=== PATIENT | male | born 1945 | race African-American/Black ===

== ENCOUNTER 2017-09-11 09:43 | Outpatient (CLI) | payer MEDICARE, BC ==
[~2017-09-11 09:43] MED LIST: Iopamidol 370 76% 100 ML VIAL ONE
[2017-09-11 10:17] LABS: Estimated GFR-MDRD - POC Greater than 90
--- NOTE | 2017-09-11 12:52 | CT ---
CT ABDOMEN AND PELVIS WITH AND WITHOUT IV CONTRAST: History: Hematuria. FINDINGS: No comparison. Each renal collecting system, ureter, and urinary bladder are decompressed without stone apparent. Mi ld atelectasis is present at each lung base. Calcified granulomata within the solid organs are consis tent with healed granulomatous disease. No filling defects are apparent within the urinary system on the delayed images. Post-operative rashid es of the GE junction are evident. There is calcification throughout the arterial structures. Degener ative changes lumbar spine. Cysts arise from the cortex of the kidneys, measuring up to 3.2 cm at the superior pole left kidney. Lack of oral contrast limits evaluation of the bowel. No evidence of obstruction. IMPRESSION: 1. Renal cysts. 2. No acute urinary tract abnormalities are demonstrated to explain hematuria. POS: BESSY
== END 2017-09-11 09:44 | disposition home or self-care (01) ==
LOC: SCSCT 09:43
PROVIDERS: ATTEND Urology
DX: R31.0 Gross hematuria (principal); N28.1 Cyst of kidney, acquired
CPT/HCPCS: 74178; 82565

== ENCOUNTER 2020-10-17 10:12 | Outpatient (CLI) | payer MEDICARE | END 2020-10-17 10:13 | disposition home or self-care (01) | LOC: ULT 10:12 | PROVIDERS: ATTEND Internal Medicine | DX: I69.354 Hemiplegia and hemiparesis following cerebral infarction affecting left non-dominant side (principal); I63.9 Cerebral infarction, unspecified; R29.898 Other symptoms and signs involving the musculoskeletal system; I08.1 Rheumatic disorders of both mitral and tricuspid valves | CPT/HCPCS: 70450; 93306; 93880 ==

== ENCOUNTER 2022-01-18 15:36 | Inpatient (IN) | payer MEDICARE ==
[2022-01-18] MEDS ORDERED: Lactated Ringer's 500 ML IV SCH (22:00)
[2022-01-19 03:50] LABS: #Lymphocytes 1.2 thou/uL (1.20-3.40); #Monocytes 0.6 thou/uL (0.11-0.59); #Neutrophils 9.9 thou/uL (1.40-6.50); %Basophils 0.1 % (0.0-1.0); %Lymphocytes 10.1 % (21.0-51.0); %Monocytes 5.1 % (0.0-10.0); %Neutrophils 84.7 % (42.0-75.0); Hemoglobin 10.1 g/dL (14.0-18.0); Mean Corpuscular HGB CONC 33.1 g/dL (32.0-36.0); Mean Corpuscular Hemoglobin 26.5 pg (27.0-31.0); Mean Corpuscular Volume 80.1 fL (78.0-98.0); Platelet Count 261 thou/uL (130-400); RBC Distribution Width 14.6 % (11.5-14.5); White Blood Cell (WBC) Count 11.7 thou/uL (4.8-10.8)
[2022-01-19 04:09] LABS: Lactic Acid 1.2 mmol/L (0.5-2.2)
[2022-01-19 04:11] LABS: ALT (SGPT) 17 U/L (8-55); AST (SGOT) 22 U/L (5-34); Albumin 2.8 g/dL (3.4-4.8); Alkaline Phosphatase 47 U/L (40-110); Anion Gap 11 mmol/L (10-20); BUN (Urea Nitrogen) 22 mg/dL (8.4-25.7); Bilirubin, Total 0.7 mg/dL (0.2-1.2); Calc. Creatinine Clearance 69 mL/min (70-130); Calcium 8.6 mg/dL (7.8-10.44); Carbon Dioxide 22 mmol/L (23-31); Chloride 105 mmol/L (98-107); Estimated GFR 100; Globulin 2.7 g/dL (2.4-3.5); Glucose 104 mg/dL (83-110); Potassium 3.9 mmol/L (3.5-5.1); Protein, Total 5.5 g/dL (5.8-8.1); Sodium 134 mmol/L (136-145)
[2022-01-19] MEDS: Lactated Ringer's 1,000 ML IV SCH ×4 (05:14→20:13)
[2022-01-19] MEDS ORDERED: Ferrous Sulfate 325 MG TAB PO SCH (09:00)
[2022-01-19] MEDS ORDERED: Enoxaparin Sodium 30 MG/0.3 ML SYRINGE SC SCH (09:00)
[2022-01-19] MEDS ORDERED: Oxybutynin 5 MG TAB PO SCH (09:00)
[2022-01-19] MEDS: metroNIDAZOLE 500 MG in Premix Bag 1 BAG IVPB SCH ×2 (09:26→17:01)
[2022-01-19] MEDS: Aspirin 81 mg Enteric Coated Tablet PO SCH (09:27)
[2022-01-19] MEDS: Enoxaparin Sodium 40 MG/0.4 ML SYRINGE SC SCH (09:27)
[2022-01-19] MEDS: Loratadine 10 MG TAB PO SCH (09:28)
[2022-01-19] MEDS: Clopidogrel Bisulfate 75 MG TAB PO SCH (09:28)
[2022-01-19] MEDS: Finasteride 5 MG TAB PO SCH (09:28)
[2022-01-19] MEDS: cefTRIAXone\\ROCEPHIN 1 GM in Sodium Chloride 0.9% 100 ML IVPB SCH (14:53)
[2022-01-19] MEDS: Azithromycin 500 MG in Sodium Chloride 0.9% 250 ML 250 ML IVPB SCH (14:53)
[2022-01-19] MEDS ORDERED: Acetaminophen 650 MG Suppository PR PRN (19:52)
[2022-01-19] MEDS ORDERED: Acetaminophen 650 MG Suppository PR SCH (20:00)
[2022-01-19] MEDS: Acetaminophen 650 MG Suppository PR PRN (20:07)
[2022-01-19] MEDS: Atorvastatin Calcium 20 MG TAB PO SCH (20:12)
[2022-01-19] MEDS: Tamsulosin HCl 0.4 MG CAP PO SCH (20:12)
[2022-01-20] MEDS: metroNIDAZOLE 500 MG in Premix Bag 1 BAG IVPB SCH ×3 (00:26→17:44)
[2022-01-20] MEDS: Acetaminophen 650 MG Suppository PR PRN ×2 (00:26→03:55)
[2022-01-20] MEDS: Lactated Ringer's 1,000 ML IV SCH (03:50)
[2022-01-20 04:37] LABS: #Lymphocytes 0.7 thou/uL (1.20-3.40); #Monocytes 0.4 thou/uL (0.11-0.59); #Neutrophils 7.2 thou/uL (1.40-6.50); %Basophils 0.4 % (0.0-1.0); %Lymphocytes 8.1 % (21.0-51.0); %Monocytes 4.3 % (0.0-10.0); %Neutrophils 87.1 % (42.0-75.0); Hemoglobin 9.1 g/dL (14.0-18.0); Mean Corpuscular HGB CONC 33.1 g/dL (32.0-36.0); Mean Corpuscular Hemoglobin 26.3 pg (27.0-31.0); Mean Corpuscular Volume 79.4 fL (78.0-98.0); Mean Platelet Volume 8.6 fL (7.4-10.4); Platelet Count 228 thou/uL (130-400); RBC Distribution Width 14.5 % (11.5-14.5); Red Blood Cell (RBC) Count 3.47 mill/uL (4.70-6.10); White Blood Cell (WBC) Count 8.3 thou/uL (4.8-10.8)
[2022-01-20 05:04] LABS: ALT (SGPT) 15 U/L (8-55); AST (SGOT) 23 U/L (5-34); Albumin 2.4 g/dL (3.4-4.8); Alkaline Phosphatase 41 U/L (40-110); Anion Gap 10 mmol/L (10-20); BUN (Urea Nitrogen) 15 mg/dL (8.4-25.7); Bilirubin, Total 0.8 mg/dL (0.2-1.2); Calc. Creatinine Clearance 79 mL/min (70-130); Calcium 8.6 mg/dL (7.8-10.44); Carbon Dioxide 22 mmol/L (23-31); Chloride 103 mmol/L (98-107); Estimated GFR 104; Glucose 81 mg/dL (83-110); Potassium 3.3 mmol/L (3.5-5.1); Protein, Total 5.4 g/dL (5.8-8.1); Sodium 132 mmol/L (136-145)
[2022-01-20] MEDS ORDERED: Potassium Chloride 40 MEQ in Premix Bag 1 BAG IVPB SCH (08:00)
[2022-01-20] MEDS: Aspirin 81 mg Enteric Coated Tablet PO SCH (08:34)
[2022-01-20] MEDS: Enoxaparin Sodium 40 MG/0.4 ML SYRINGE SC SCH (08:35)
[2022-01-20] MEDS: Loratadine 10 MG TAB PO SCH (08:35)
[2022-01-20] MEDS: Finasteride 5 MG TAB PO SCH (08:35)
[2022-01-20] MEDS: Clopidogrel Bisulfate 75 MG TAB PO SCH (08:35)
[2022-01-20] MEDS: Dextrose 5 %-0.45 % NaCl 1,000 ML IV SCH ×2 (11:20→19:24)
[2022-01-20] MEDS: Azithromycin 500 MG in Sodium Chloride 0.9% 250 ML 250 ML IVPB SCH ×2 (17:44→18:39)
[2022-01-20] MEDS: cefTRIAXone\\ROCEPHIN 1 GM in Sodium Chloride 0.9% 100 ML IVPB SCH (17:44)
[2022-01-20] MEDS: Atorvastatin Calcium 20 MG TAB PO SCH (19:24)
[2022-01-20] MEDS: Tamsulosin HCl 0.4 MG CAP PO SCH (19:24)
[2022-01-21] MEDS: metroNIDAZOLE 500 MG in Premix Bag 1 BAG IVPB SCH ×3 (01:22→17:49)
[2022-01-21 04:58] LABS: #Lymphocytes 0.6 thou/uL (1.20-3.40); #Monocytes 0.3 thou/uL (0.11-0.59); #Neutrophils 6.1 thou/uL (1.40-6.50); %Basophils 0.1 % (0.0-1.0); %Eosinophils 0.1 % (0.0-10.0); %Lymphocytes 9.1 % (21.0-51.0); %Monocytes 4.8 % (0.0-10.0); %Neutrophils 85.9 % (42.0-75.0); Hemoglobin 10.2 g/dL (14.0-18.0); Mean Corpuscular HGB CONC 32.4 g/dL (32.0-36.0); Mean Corpuscular Hemoglobin 26.1 pg (27.0-31.0); Mean Corpuscular Volume 80.7 fL (78.0-98.0); Mean Platelet Volume 8.5 fL (7.4-10.4); Platelet Count 250 thou/uL (130-400); White Blood Cell (WBC) Count 7.1 thou/uL (4.8-10.8)
[2022-01-21 05:17] LABS: ALT (SGPT) 16 U/L (8-55); AST (SGOT) 22 U/L (5-34); Albumin 2.4 g/dL (3.4-4.8); Alkaline Phosphatase 46 U/L (40-110); Anion Gap 12 mmol/L (10-20); BUN (Urea Nitrogen) 8 mg/dL (8.4-25.7); Bilirubin, Total 0.6 mg/dL (0.2-1.2); Calc. Creatinine Clearance 76 mL/min (70-130); Calcium 8.5 mg/dL (7.8-10.44); Carbon Dioxide 21 mmol/L (23-31); Chloride 100 mmol/L (98-107); Estimated GFR 103; Globulin 3.2 g/dL (2.4-3.5); Glucose 111 mg/dL (83-110); Potassium 3.5 mmol/L (3.5-5.1); Protein, Total 5.6 g/dL (5.8-8.1); Sodium 129 mmol/L (136-145)
[2022-01-21] MEDS: Dextrose 5 %-0.45 % NaCl 1,000 ML IV SCH (05:46)
[2022-01-21] MEDS: Clopidogrel Bisulfate 75 MG TAB PO SCH (07:31)
[2022-01-21] MEDS: Aspirin 81 mg Enteric Coated Tablet PO SCH (07:31)
[2022-01-21] MEDS: Finasteride 5 MG TAB PO SCH (07:31)
[2022-01-21] MEDS: Loratadine 10 MG TAB PO SCH (07:31)
[2022-01-21] MEDS: Enoxaparin Sodium 40 MG/0.4 ML SYRINGE SC SCH (10:06)
[2022-01-21] MEDS: Lactated Ringer's 1,000 ML IV SCH ×2 (11:28→20:37)
[2022-01-21] MEDS: cefTRIAXone\\ROCEPHIN 1 GM in Sodium Chloride 0.9% 100 ML IVPB SCH (17:49)
[2022-01-21] MEDS: Azithromycin 500 MG in Sodium Chloride 0.9% 250 ML 250 ML IVPB SCH (17:49)
[2022-01-21] MEDS: Acetaminophen 650 MG Suppository PR PRN (17:50)
[2022-01-21] MEDS: Atorvastatin Calcium 20 MG TAB PO SCH (20:13)
[2022-01-21] MEDS: Tamsulosin HCl 0.4 MG CAP PO SCH (20:14)
[2022-01-22] MEDS: metroNIDAZOLE 500 MG in Premix Bag 1 BAG IVPB SCH ×3 (02:04→16:15)
[2022-01-22] MEDS: Lactated Ringer's 1,000 ML IV SCH ×2 (04:17→09:23)
[2022-01-22 05:58] LABS: #Lymphocytes 0.4 thou/uL (1.20-3.40); #Monocytes 0.4 thou/uL (0.11-0.59); #Neutrophils 4.8 thou/uL (1.40-6.50); %Eosinophils 0.1 % (0.0-10.0); %Lymphocytes 7.8 % (21.0-51.0); %Monocytes 6.8 % (0.0-10.0); %Neutrophils 85.2 % (42.0-75.0); Hemoglobin 10.2 g/dL (14.0-18.0); Mean Corpuscular HGB CONC 31.8 g/dL (32.0-36.0); Mean Corpuscular Hemoglobin 25.1 pg (27.0-31.0); Mean Platelet Volume 8.4 fL (7.4-10.4); Platelet Count 245 thou/uL (130-400); RBC Distribution Width 14.7 % (11.5-14.5); Red Blood Cell (RBC) Count 4.08 mill/uL (4.70-6.10); White Blood Cell (WBC) Count 5.6 thou/uL (4.8-10.8)
[2022-01-22 06:19] LABS: ALT (SGPT) 17 U/L (8-55); AST (SGOT) 26 U/L (5-34); Albumin 2.3 g/dL (3.4-4.8); Alkaline Phosphatase 39 U/L (40-110); Anion Gap 11 mmol/L (10-20); BUN (Urea Nitrogen) 8 mg/dL (8.4-25.7); Bilirubin, Total 0.5 mg/dL (0.2-1.2); Calc. Creatinine Clearance 82 mL/min (70-130); Calcium 8.5 mg/dL (7.8-10.44); Carbon Dioxide 22 mmol/L (23-31); Chloride 100 mmol/L (98-107); Estimated GFR 105; Globulin 3.1 g/dL (2.4-3.5); Glucose 79 mg/dL (83-110); Potassium 3.1 mmol/L (3.5-5.1); Protein, Total 5.4 g/dL (5.8-8.1); Sodium 130 mmol/L (136-145)
[2022-01-22] MEDS ORDERED: Potassium Chloride 40 MEQ in Premix Bag 1 BAG IVPB SCH (09:00)
[2022-01-22] MEDS: Aspirin 81 mg Enteric Coated Tablet PO SCH (09:23)
[2022-01-22] MEDS: Clopidogrel Bisulfate 75 MG TAB PO SCH (09:23)
[2022-01-22] MEDS: Finasteride 5 MG TAB PO SCH (09:23)
[2022-01-22] MEDS: Enoxaparin Sodium 30 MG/0.3 ML SYRINGE SC SCH (09:23)
[2022-01-22] MEDS: Loratadine 10 MG TAB PO SCH (09:24)
[2022-01-22] MEDS: Potassium Chloride 20 MEQ in Premix Bag 1 BAG IVPB SCH ×2 (11:19→16:14)
[2022-01-22] MEDS: cefTRIAXone\\ROCEPHIN 1 GM in Sodium Chloride 0.9% 100 ML IVPB SCH (15:09)
[2022-01-22 15:54] VITALS: BMI 15.2
[2022-01-22] MEDS ORDERED: Potassium Chloride 20 MEQ in Premix Bag 1 BAG IVPB SCH (16:15)
[2022-01-22] MEDS: Tamsulosin HCl 0.4 MG CAP PO SCH (21:19)
[2022-01-22] MEDS: Atorvastatin Calcium 20 MG TAB PO SCH (21:19)
[2022-01-23] MEDS: Lactated Ringer's 1,000 ML IV SCH ×3 (01:38→21:21)
[2022-01-23] MEDS: metroNIDAZOLE 500 MG in Premix Bag 1 BAG IVPB SCH ×2 (01:39→08:53)
[2022-01-23 04:55] LABS: #Basophils 0.1 thou/uL (0.0-0.2); #Lymphocytes 1.1 thou/uL (1.20-3.40); #Monocytes 0.7 thou/uL (0.11-0.59); #Neutrophils 3.1 thou/uL (1.40-6.50); %Basophils 1.2 % (0.0-1.0); %Eosinophils 0.7 % (0.0-10.0); %Lymphocytes 21.8 % (21.0-51.0); %Monocytes 13.6 % (0.0-10.0); %Neutrophils 62.8 % (42.0-75.0); Hemoglobin 10.2 g/dL (14.0-18.0); Mean Corpuscular HGB CONC 32.7 g/dL (32.0-36.0); Mean Corpuscular Volume 79.7 fL (78.0-98.0); Mean Platelet Volume 8.7 fL (7.4-10.4); Platelet Count 229 thou/uL (130-400); RBC Distribution Width 14.6 % (11.5-14.5); Red Blood Cell (RBC) Count 3.93 mill/uL (4.70-6.10)
[2022-01-23 05:21] LABS: ALT (SGPT) 14 U/L (8-55); AST (SGOT) 23 U/L (5-34); Albumin 2.1 g/dL (3.4-4.8); Alkaline Phosphatase 42 U/L (40-110); Anion Gap 9 mmol/L (10-20); BUN (Urea Nitrogen) 8 mg/dL (8.4-25.7); Bilirubin, Total 0.3 mg/dL (0.2-1.2); Calc. Creatinine Clearance 77 mL/min (70-130); Calcium 8.3 mg/dL (7.8-10.44); Carbon Dioxide 23 mmol/L (23-31); Chloride 102 mmol/L (98-107); Estimated GFR 103; Globulin 2.9 g/dL (2.4-3.5); Glucose 93 mg/dL (83-110); Potassium 3.4 mmol/L (3.5-5.1); Sodium 131 mmol/L (136-145)
[2022-01-23] MEDS: Clopidogrel Bisulfate 75 MG TAB PO SCH (08:53)
[2022-01-23] MEDS: Loratadine 10 MG TAB PO SCH (08:53)
[2022-01-23] MEDS: Finasteride 5 MG TAB PO SCH (08:53)
[2022-01-23] MEDS: Enoxaparin Sodium 30 MG/0.3 ML SYRINGE SC SCH (08:53)
[2022-01-23] MEDS: Aspirin 81 mg Enteric Coated Tablet PO SCH (08:53)
[2022-01-23] MEDS: metroNIDAZOLE 500 MG TAB PO SCH ×2 (14:13→21:21)
[2022-01-23] MEDS: cefTRIAXone\\ROCEPHIN 1 GM in Sodium Chloride 0.9% 100 ML IVPB SCH (14:13)
[2022-01-23] MEDS: Atorvastatin Calcium 20 MG TAB PO SCH (21:21)
[2022-01-23] MEDS: Tamsulosin HCl 0.4 MG CAP PO SCH (21:21)
[2022-01-24 05:06] LABS: ALT (SGPT) 13 U/L (8-55); AST (SGOT) 17 U/L (5-34); Albumin 2.1 g/dL (3.4-4.8); Alkaline Phosphatase 37 U/L (40-110); Anion Gap 10 mmol/L (10-20); BUN (Urea Nitrogen) 6 mg/dL (8.4-25.7); Bilirubin, Total 0.3 mg/dL (0.2-1.2); Calc. Creatinine Clearance 78 mL/min (70-130); Calcium 8.2 mg/dL (7.8-10.44); Carbon Dioxide 23 mmol/L (23-31); Chloride 104 mmol/L (98-107); Estimated GFR 104; Glucose 96 mg/dL (83-110); Potassium 3.2 mmol/L (3.5-5.1); Protein, Total 5.1 g/dL (5.8-8.1); Sodium 134 mmol/L (136-145)
[2022-01-24 05:24] LABS: Band 6 % (5-11); Eosinophils 1 % (0-10); Hemoglobin 10.1 g/dL (14.0-18.0); Lymphocytes 22 % (21-51); MDiff Complete? YES; Mean Corpuscular HGB CONC 33.2 g/dL (32.0-36.0); Mean Corpuscular Hemoglobin 26.4 pg (27.0-31.0); Mean Corpuscular Volume 79.7 fL (78.0-98.0); Mean Platelet Volume 8.6 fL (7.4-10.4); Monocytes 12 % (0-10); Neutrophil 58 % (42-75); Platelet Count 235 thou/uL (130-400); RBC Distribution Width 14.8 % (11.5-14.5); Reactive Lymphocytes 1 % (0-10); Red Blood Cell (RBC) Count 3.81 mill/uL (4.70-6.10); White Blood Cell (WBC) Count 5.1 thou/uL (4.8-10.8)
[2022-01-24] MEDS: Aspirin 81 mg Enteric Coated Tablet PO SCH (09:25)
[2022-01-24] MEDS: Finasteride 5 MG TAB PO SCH (09:37)
[2022-01-24] MEDS: metroNIDAZOLE 500 MG TAB PO SCH ×2 (09:37→15:38)
[2022-01-24] MEDS: Loratadine 10 MG TAB PO SCH (09:37)
[2022-01-24] MEDS: Clopidogrel Bisulfate 75 MG TAB PO SCH (09:38)
[2022-01-24] MEDS: Enoxaparin Sodium 30 MG/0.3 ML SYRINGE SC SCH (09:38)
[2022-01-24] MEDS ORDERED: Aspirin Chewable 81 MG TAB PO SCH (09:45)
[2022-01-24] MEDS ORDERED: Aspirin 81 mg Enteric Coated Tablet PO SCH (09:45)
[2022-01-24] MEDS: Lactated Ringer's 1,000 ML IV SCH (15:39)
[2022-01-24 16:17] VITALS: BP 110/70; TEMP 98
[2022-01-25] MEDS ORDERED: Aspirin 81 mg Enteric Coated Tablet PO SCH (09:00)
[2022-01-25] MEDS ORDERED: Aspirin Chewable 81 MG TAB PO SCH (09:00)
== END 2022-01-24 19:25 | disposition hospice, home (50) | DRG 871 ==
LOC: 2NO 19:39
PROVIDERS: ADMIT Student in an Organized Health Care Education/Training Program; ATTEND Student in an Organized Health Care Education/Training Program
DX: A41.9 Sepsis, unspecified organism (principal); E43 Unspecified severe protein-calorie malnutrition; J18.9 Pneumonia, unspecified organism; J69.0 Pneumonitis due to inhalation of food and vomit; I69.954 Hemiplegia and hemiparesis following unspecified cerebrovascular disease affecting left non-dominant side; Z68.1 Body mass index [BMI] 19.9 or less, adult; E87.2 Acidosis; Z51.5 Encounter for palliative care; Z20.822 Contact with and (suspected) exposure to COVID-19; N40.0 Benign prostatic hyperplasia without lower urinary tract symptoms; I10 Essential (primary) hypertension; E86.0 Dehydration; I69.991 Dysphagia following unspecified cerebrovascular disease; R13.10 Dysphagia, unspecified; R73.9 Hyperglycemia, unspecified; D64.9 Anemia, unspecified; E87.6 Hypokalemia; F03.90 Unspecified dementia, unspecified severity, without behavioral disturbance, psychotic disturbance, mood disturbance, and anxiety; L89.152 Pressure ulcer of sacral region, stage 2; Z79.82 Long term (current) use of aspirin; Z79.899 Other long term (current) drug therapy
CPT/HCPCS: 36415; 80053; 83605; 84145; 85025; 97139; J0456; J0696; J1650; J3480; J3490; J7042; J7050; J7120

== ENCOUNTER 2022-03-23 10:44 | Inpatient (IN) | payer MEDICARE ==
[2022-03-23 11:27] LABS: #Lymphocytes 0.6 thou/uL (1.20-3.40); #Monocytes 0.8 thou/uL (0.11-0.59); #Neutrophils 16.1 thou/uL (1.40-6.50); %Basophils 0.2 % (0.0-1.0); %Eosinophils 0.1 % (0.0-10.0); %Lymphocytes 3.3 % (21.0-51.0); %Monocytes 4.3 % (0.0-10.0); %Neutrophils 92.2 % (42.0-75.0); Hemoglobin 12.6 g/dL (14.0-18.0); Mean Corpuscular HGB CONC 30.4 g/dL (32.0-36.0); Mean Corpuscular Hemoglobin 25.7 pg (27.0-31.0); Mean Corpuscular Volume 84.5 fl (78.0-98.0); Mean Platelet Volume 9.6 fL (7.4-10.4); Platelet Count 349 10x3/uL (130-400); RBC Distribution Width 16.3 % (11.5-14.5); White Blood Cell (WBC) Count 17.5 10x3/uL (4.8-10.8)
[2022-03-23 11:49] LABS: ALT (SGPT) 13 U/L (8-55); AST (SGOT) 16 U/L (5-34); Albumin 2.9 g/dL (3.4-4.8); Alkaline Phosphatase 63 U/L (40-110); Anion Gap 17 mmol/L (10-20); BUN (Urea Nitrogen) 83 mg/dL (8.4-25.7); Bilirubin, Total 0.9 mg/dL (0.2-1.2); Calc. Creatinine Clearance 0 mL/min (70-130); Calcium 12.8 mg/dL (7.8-10.44); Carbon Dioxide 21 mmol/L (23-31); Chloride 111 mmol/L (98-107); Estimated GFR 94; Globulin 5.3 g/dL (2.4-3.5); Glucose 123 mg/dL (83-110); Potassium 3.9 mmol/L (3.5-5.1); Protein, Total 8.2 g/dL (5.8-8.1); Sodium 145 mmol/L (136-145)
[2022-03-23 11:52] LABS: CRP (Inflammatory) 23.19 mg/dL (= or < 0.5)
[2022-03-23] MEDS ORDERED: Azithromycin 500 MG VIAL ONE (11:53)
[2022-03-23] MEDS ORDERED: Cefepime 2 GM VIAL ONE (11:53)
[2022-03-23] MEDS ORDERED: Vancomycin 1 GM/200 ML (FROZEN) BAG ONE ×2 (12:23→12:47)
[2022-03-23 12:31] LABS: SARS-CoV-2 NAA Rapid Test Not Detected (NotDetected)
[2022-03-23] MEDS ORDERED: metroNIDAZOLE 500 MG/100 ML BAG ONE (12:47)
[2022-03-23] MEDS ORDERED: Sodium Chloride 0.9% 1,000 ML IV SCH (13:30)
[2022-03-23 14:31] LABS: Lactic Acid 3.9 mmol/L (0.5-2.2)
[2022-03-23] MEDS: Dexamethasone 4 mg/ml Vial SLOW IVP SCH (15:43)
[2022-03-23] MEDS: Lactated Ringer's 1,000 ML IV SCH (15:44)
[2022-03-23] MEDS ORDERED: FLU VACC QS2022-23(65YR UP)/PF 240 MCG/0.7 ML SYRINGE IM ONE (17:00)
[2022-03-23] MEDS ORDERED: Tamsulosin HCl 0.4 MG CAP PO SCH (21:00)
[2022-03-23] MEDS: Cefepime 2 GM in Sodium Chloride 0.9% 100 ML IVPB SCH (23:26)
[2022-03-24] MEDS: Lactated Ringer's 1,000 ML IV SCH ×3 (04:51→18:31)
[2022-03-24 06:49] LABS: Anion Gap 9 mmol/L (10-20); BUN (Urea Nitrogen) 53 mg/dL (8.4-25.7); Calc. Creatinine Clearance 62 mL/min (70-130); Calcium 11.5 mg/dL (7.8-10.44); Carbon Dioxide 26 mmol/L (23-31); Chloride 120 mmol/L (98-107); Estimated GFR 102; Glucose 93 mg/dL (83-110); Potassium 3.4 mmol/L (3.5-5.1)
[2022-03-24 06:54] LABS: Sodium 152 mmol/L (136-145)
[2022-03-24 08:23] LABS: Band 12 % (5-11); Hemoglobin 11.1 g/dL (14.0-18.0); Hypochromia SLIGHT = 6-15 cells (100X) (0-5/hpf); Lymphocytes 3 % (21-51); MDiff Complete? YES; Mean Corpuscular HGB CONC 30.3 g/dL (32.0-36.0); Mean Corpuscular Hemoglobin 25.1 pg (27.0-31.0); Mean Corpuscular Volume 82.9 fl (78.0-98.0); Mean Platelet Volume 9.7 fL (7.4-10.4); Monocytes 4 % (0-10); Neutrophil 81 % (42-75); Platelet Count 252 10x3/uL (130-400); Platelet Morphology Comment Appears Adequate; RBC Distribution Width 16.4 % (11.5-14.5); Red Blood Cell (RBC) Count 4.41 mill/uL (4.70-6.10); White Blood Cell (WBC) Count 15.7 10x3/uL (4.8-10.8)
[2022-03-24] MEDS: Enoxaparin Sodium 30 MG/0.3 ML SYRINGE SC SCH (08:53)
[2022-03-24] MEDS ORDERED: Loratadine 10 MG TAB PO SCH (09:00)
[2022-03-24] MEDS: Cefepime 2 GM in Sodium Chloride 0.9% 100 ML IVPB SCH ×2 (12:05→23:52)
[2022-03-24] MEDS: Azithromycin 500 MG in Sodium Chloride 0.9% 250 ML 250 ML IVPB SCH (12:51)
[2022-03-24 14:12] VITALS: BMI 12.7
[2022-03-24] MEDS: Dexamethasone 4 mg/ml Vial SLOW IVP SCH (16:10)
[2022-03-25] MEDS: Lactated Ringer's 1,000 ML IV SCH ×2 (05:07→15:03)
[2022-03-25 08:21] LABS: Anion Gap 13 mmol/L (10-20); BUN (Urea Nitrogen) 45 mg/dL (8.4-25.7); Calc. Creatinine Clearance 53 mL/min (70-130); Calcium 11.8 mg/dL (7.8-10.44); Carbon Dioxide 25 mmol/L (23-31); Chloride 125 mmol/L (98-107); Estimated GFR 98; Glucose 90 mg/dL (83-110); Potassium 3.8 mmol/L (3.5-5.1)
[2022-03-25 08:26] LABS: Sodium 159 mmol/L (136-145)
[2022-03-25] MEDS: Enoxaparin Sodium 30 MG/0.3 ML SYRINGE SC SCH (09:06)
[2022-03-25] MEDS ORDERED: Dextrose 5% in Water 1,000 ML IV SCH (10:00)
[2022-03-25] MEDS: Azithromycin 500 MG in Sodium Chloride 0.9% 250 ML 250 ML IVPB SCH (11:11)
[2022-03-25] MEDS: Cefepime 2 GM in Sodium Chloride 0.9% 100 ML IVPB SCH ×2 (12:31→23:35)
[2022-03-25] MEDS: Dexamethasone 4 mg/ml Vial SLOW IVP SCH (14:42)
[2022-03-25] MEDS ORDERED: Lactated Ringer's 1,000 ML IV SCH ×3 (15:45→20:15)
[2022-03-25 16:54] LABS: Anion Gap 9 mmol/L (10-20); BUN (Urea Nitrogen) 54 mg/dL (8.4-25.7); Calc. Creatinine Clearance 42 mL/min (70-130); Calcium 12.1 mg/dL (7.8-10.44); Carbon Dioxide 28 mmol/L (23-31); Chloride 127 mmol/L (98-107); Estimated GFR 91; Glucose 94 mg/dL (83-110); Potassium 4.4 mmol/L (3.5-5.1)
[2022-03-25 17:03] LABS: Sodium 160 mmol/L (136-145)
[2022-03-26 01:29] LABS: Anion Gap 9 mmol/L (10-20); BUN (Urea Nitrogen) 47 mg/dL (8.4-25.7); Calc. Creatinine Clearance 53 mL/min (70-130); Calcium 11.1 mg/dL (7.8-10.44); Carbon Dioxide 27 mmol/L (23-31); Chloride 122 mmol/L (98-107); Estimated GFR 97; Glucose 137 mg/dL (83-110); Potassium 3.9 mmol/L (3.5-5.1)
[2022-03-26 01:33] LABS: Sodium 154 mmol/L (136-145)
[2022-03-26] MEDS: Dextrose 5% in Water 1,000 ML IV SCH ×4 (05:36→18:03)
[2022-03-26 06:41] LABS: Lactic Acid 1.9 mmol/L (0.5-2.2)
[2022-03-26 06:43] LABS: Anion Gap 8 mmol/L (10-20); BUN (Urea Nitrogen) 44 mg/dL (8.4-25.7); Calc. Creatinine Clearance 55 mL/min (70-130); Calcium 11.2 mg/dL (7.8-10.44); Carbon Dioxide 27 mmol/L (23-31); Chloride 121 mmol/L (98-107); Estimated GFR 99; Glucose 155 mg/dL (83-110); Potassium 3.4 mmol/L (3.5-5.1)
[2022-03-26 06:48] LABS: Sodium 153 mmol/L (136-145)
[2022-03-26] MEDS: Enoxaparin Sodium 30 MG/0.3 ML SYRINGE SC SCH (09:20)
[2022-03-26] MEDS ORDERED: Potassium Chloride 20 MEQ TAB PO SCH (12:00)
[2022-03-26] MEDS ORDERED: Potassium Chloride 10 MEQ in Premix Bag 1 BAG IVPB SCH (12:30)
[2022-03-26] MEDS: Lactated Ringer's 1,000 ML IV SCH ×2 (14:30→22:00)
[2022-03-26] MEDS: Cefepime 2 GM in Sodium Chloride 0.9% 100 ML IVPB SCH (14:31)
[2022-03-26] MEDS: Azithromycin 500 MG in Sodium Chloride 0.9% 250 ML 250 ML IVPB SCH (14:32)
[2022-03-26] MEDS: Vancomycin HCl 750 MG in Sodium Chloride 0.9% 250 ML 250 ML IVPB SCH (15:37)
[2022-03-26] MEDS: Dexamethasone 4 mg/ml Vial SLOW IVP SCH (17:09)
[2022-03-26 17:23] LABS: Anion Gap 6 mmol/L (10-20); BUN (Urea Nitrogen) 38 mg/dL (8.4-25.7); Calc. Creatinine Clearance 61 mL/min (70-130); Carbon Dioxide 27 mmol/L (23-31); Chloride 120 mmol/L (98-107); Sodium 150 mmol/L (136-145)
[2022-03-26 17:24] LABS: Calcium 10.8 mg/dL (7.8-10.44); Estimated GFR 102; Glucose 123 mg/dL (83-110)
[2022-03-26] MEDS: Potassium Chloride 20 MEQ in Premix Bag 1 BAG IVPB SCH ×2 (19:49→22:07)
[2022-03-26] MEDS ORDERED: VANCOMYCIN 1.75 GM/350 ML BAG IVPB SCH (21:00)
[2022-03-27] MEDS: Cefepime 2 GM in Sodium Chloride 0.9% 100 ML IVPB SCH ×2 (00:20→11:26)
[2022-03-27] MEDS: Lactated Ringer's 1,000 ML IV SCH ×2 (00:24→11:25)
[2022-03-27] MEDS: Dextrose 5% in Water 1,000 ML IV SCH ×2 (05:47→11:25)
[2022-03-27] MEDS: Enoxaparin Sodium 30 MG/0.3 ML SYRINGE SC SCH (08:07)
[2022-03-27] MEDS: Azithromycin 500 MG in Sodium Chloride 0.9% 250 ML 250 ML IVPB SCH (12:09)
[2022-03-27] MEDS: Vancomycin HCl 750 MG in Sodium Chloride 0.9% 250 ML 250 ML IVPB SCH (13:16)
[2022-03-27] MEDS: Dexamethasone 4 mg/ml Vial SLOW IVP SCH (14:56)
[2022-03-27] MEDS: Glycopyrrolate 0.2 MG/ML 5 ML SYRINGE SLOW IVP PRN (21:26)
[2022-03-28] MEDS: Cefepime 2 GM in Sodium Chloride 0.9% 100 ML IVPB SCH ×2 (00:54→11:57)
[2022-03-28] MEDS: Dextrose 5% in Water 1,000 ML IV SCH ×2 (03:22→12:31)
[2022-03-28] MEDS: Lactated Ringer's 1,000 ML IV SCH ×2 (03:22→12:30)
[2022-03-28] MEDS: Glycopyrrolate 0.2 MG/ML 5 ML SYRINGE SLOW IVP PRN (06:04)
[2022-03-28] MEDS: Enoxaparin Sodium 30 MG/0.3 ML SYRINGE SC SCH (08:17)
[2022-03-28] MEDS: Azithromycin 500 MG in Sodium Chloride 0.9% 250 ML 250 ML IVPB SCH (11:57)
[2022-03-28] MEDS: Vancomycin HCl 750 MG in Sodium Chloride 0.9% 250 ML 250 ML IVPB SCH (12:30)
[2022-03-28] MEDS: Dexamethasone 4 mg/ml Vial SLOW IVP SCH (12:30)
[2022-03-28 13:36] LABS: Vancomycin, Trough 6.4 ug/mL
[2022-03-28] MEDS ORDERED: Lorazepam 2 MG/ML VIAL SLOW IVP PRN (16:32)
[2022-03-28] MEDS: Morphine 4 MG/ML VIAL SLOW IVP PRN ×2 (17:22→21:16)
[2022-03-29] MEDS: Enoxaparin Sodium 30 MG/0.3 ML SYRINGE SC SCH (07:26)
[2022-03-30] MEDS: Morphine 4 MG/ML VIAL SLOW IVP PRN (04:46)
[2022-03-31 09:00] VITALS: BP 97/75; TEMP 98
== END 2022-03-31 16:41 | disposition hospice, home (50) | DRG 871 ==
LOC: ERS 10:44 → T4-A 12:41 → OBSVTOIN 12:41
PROVIDERS: ADMIT Family Medicine; ATTEND Family Medicine
DX: A41.9 Sepsis, unspecified organism (principal); E43 Unspecified severe protein-calorie malnutrition; J18.9 Pneumonia, unspecified organism; J96.01 Acute respiratory failure with hypoxia; R64 Cachexia; E87.0 Hyperosmolality and hypernatremia; Z68.1 Body mass index [BMI] 19.9 or less, adult; Z66 Do not resuscitate; Z20.822 Contact with and (suspected) exposure to COVID-19; I10 Essential (primary) hypertension; F17.210 Nicotine dependence, cigarettes, uncomplicated; E86.0 Dehydration; F03.90 Unspecified dementia, unspecified severity, without behavioral disturbance, psychotic disturbance, mood disturbance, and anxiety; L89.150 Pressure ulcer of sacral region, unstageable; E83.52 Hypercalcemia; R94.31 Abnormal electrocardiogram [ECG] [EKG]; I69.398 Other sequelae of cerebral infarction; Z79.899 Other long term (current) drug therapy
CPT/HCPCS: 36415; 51701; 71045; 80048; 80053; 80202; 82550; 83605; 83880; 84145; 84146; 84484; 85025; 86140; 87040; 87077; 87149; 93005; 96361; 96365; 96367; 96374; 97139; J0456; J0692; J1100; J1650; J2270; J3370; J3370-JW; J3480; J3490; J7050; J7070; J7120; U0002